=== PATIENT | female | born 1960 | race Caucasian/White ===

== ENCOUNTER 2021-03-02 13:21 | Observation (INO) | payer OTHER, SELFPAY ==
[2021-03-02] VITALS (9 sets, daily range): BP systolic 137–154; BP diastolic 73–110; PULSE 61–73; RESP 10–18; TEMP 36.1–36.8; O2SAT 95–100; BMI 33.0; BMI 31.8; BMI 31.9
--- NOTE | 2021-03-02 13:31 | RAD_ITS ---
STUDY: X-RAY CHEST REASON FOR EXAM: Female, 60 years old. Sudden onset of chest pain TECHNIQUE: Single AP portable view of the chest. COMPARISON: None. FINDINGS: The lungs are clear and expanded. There is no demonstrated pleural abnormality. Normal size heart. Normal mediastinum and julissa. Normal visualized pulmonary arteries. There is atherosclerotic calcification of the aortic arch with tortuosity. Normal visualized thoracic spine. Normal visualized ribs, clavicles, and shoulders. There is no demonstrated abnormality of the visualized soft tissue structures of the upper abdomen. RAD/Chest 1 View (Portable) IMPRESSION: Normal x-ray examination of the chest. Electronically Signed: Franck Yeh MD at 13:56 EDT , Service support ,
--- NOTE | 2021-03-02 13:31 | EKG12_ITS ---
Test Reason : CARDIO WORKUP Blood Pressure : / mmHG Vent. Rate : 060 BPM Atrial Rate : 060 BPM P-R Int : 150 ms QRS Dur : 080 ms QT Int : 392 ms P-R-T Axes : 021 -03 017 degrees QTc Int : 392 ms Normal sinus rhythm Normal ECG Confirmed by TOMAS MEJIA, LEANNA ([id number]), editor & co founder DEANDRA WELLS ([id number]) on 03/04/2021 11:32:21 AM Referred By: MARIO/SHIREEN Confirmed By:LEANNA MARIN MD
[2021-03-02 13:57] LABS: Absolute Lymphocyte Count 2.52 X10^3/uL (0.83-4.51); Basophil# 0.05 X10^3/uL; Basophil% 0.5 % (0-1); Eosinophil# 0.08 X10^3/uL; Eosinophils% 0.9 % (0-5); Hematocrit 41.7 % (37-47); Hemoglobin 13.6 g/dL (12.0-15.0); Lymphocyte # 2.52 X10^3/ul (0.83-4.51); Lymphocyte % 26.8 % (19-41); Mean Corp Hgb Conc 32.6 g/dL (32-36); Mean Corpuscular Hgb 32.8 pg (27.0-32.0); Mean Corpuscular Volume 100.5 fL (81-99); Mean Platelet Vol. 10.3 fl (6.2-12.0); Monocyte# 0.76 X10^3/uL; Monocyte% 8.1 % (0-10); NRBC Flagged by Analyzer 0 % (0-5); Neutrophil # 5.96 X10^3/uL (2.7-7.7); Neutrophil % 63.4 % (47-70); Platelet Count 324 K/mm3 (150-450); RBC Distribution Width CV 13.2 % (11.6-14.6); RBC Distribution Width SD 48.7 fl (35.1-43.9); Red Blood Count 4.15 M/mm3 (4.2-5.4); White Blood Count 9.4 K/mm3 (4.4-11.0)
[2021-03-02 14:03] LABS: Prothrombin Time (Protime)PT. 12.5 SECONDS (11.7-14.9)
[2021-03-02 14:11] LABS: Anion Gap 3 (5-15); BUN 8 mg/dL (7-18); BUN/Creat Ratio 10.4 RATIO (10-20); Calcium,Total 9.6 mg/dL (8.5-10.1); Chloride 104 mmol/L (98-107); Creatinine, Serum 0.77 mg/dL (0.55-1.02); EST Glomerular Filtration Rate 81 mL/min (>60); Est Glom Filt Rate - Afr Amer 98 mL/min (>60); Glucose 127 mg/dL (74-106); Potassium 3.8 mmol/L (3.5-5.1); Sodium Level 136 mmol/L (136-145)
--- NOTE | 2021-03-02 14:18 | ED.DCSUM_ITS ---
History of Present Illness Chief Complaint: General Illness Narrative: 60-year-old female with past medical history of hypertension presents with concern for chest pain and shortness of breath. States is been present over the past 1 week. States that she was seen in the hospital in [place] twice over the weekend. Advised on admission both times. Patient then followed up with Dr. Schmid today who is concerned with her symptoms and feels she needs heart catheterization. States that last night she was having a severe burning in her chest. Was seen by physician real estate executive assistant yesterday who gave her Pepcid which did not resolve her pain. States that she does have a worsening shortness of breath but denies any cough, fever, chills. States she is also very fatigued. Patient is a current smoker. Past Medical History - Allergies and Home Meds Allergies/Adverse Reactions: Allergies Penicillins [PCN] Allergy (Verified 03/02/21 13:22) Rash codeine Adverse Reaction (Verified 03/02/21 13:22) Upset Stomach Prior records reviewed: Yes Past Medical History: - - Hypertension Surgical History: noncontributory Lives: Spouse/ Significant Other Smoking Status: Current every day smoker Alcohol: None Drugs: None - Family History Maternal Family History: Reports: Diabetes Paternal Family History: Reports: Diabetes, - - Cancer Review of Systems General: Reports: Malaise. Denies: Chills, Fever, Sweats Eyes: Denies: Visual changes - bilaterally, Diplopia ENT: Denies: Rhinorrhea, Sore throat Cardiovascular: Reports: Chest pain. Denies: Palpitations Respiratory: Reports: Dyspnea. Denies: Cough, Dyspnea on exertion Gastrointestinal: Denies: Abdominal pain, Nausea, Vomiting, Diarrhea, Melena, Hematochezia Genitourinary: Denies: Dysuria, Hematuria, Frequency Musculoskeletal: Denies: Back pain, Extremity Pain Skin: Denies: Rash, Wounds Neurological: Denies: Headache, Weakness, Numbness Physical Exam Vital Signs/Narrative: Vital Signs Temp Pulse Resp BP Pulse Ox 03/02/21 13:43 98 03/02/21 13:26 67 15 154/110 H 98 03/02/21 13:22 97.6 F L 66 15 154/110 H 100 Inital Vital Signs reviewed: Yes General: Well nourished, Well developed, No Acute Distress Head: Normocephalic, Atraumatic Eyes: Perrl, EOMI ENT: Moist mucous membranes, No rhinorrhea Neck: Supple, Nontender Cardiovascular: Regular rate, Regular rhythm, No murmurs Respiratory: No distress, CTA bilaterally, Chest nontender Abdomen: Soft, Nontender, Nondistended, Normal bowel sounds Back: Nontender, Normal Inspection Extremities: Nontender, No edema Skin: Normal color, No rash Neurological: Alert, Oriented x3, Cranial nerves II-XII grossly intact, Normal Strength, Normal Sensation Psychological: Normal affect, Normal Mood Diagnostic/Tx/Re-eval Chest X-Ray - ED: 1 View, Read by ED Physician, Read by Radiologist, Normal Clinical Impression(s) from Imaging Studies Chest X-Ray 03/02/21 13:31 IMPRESSION: Normal x-ray examination of the chest. Electronically Signed: Franck Yeh MD at 13:56 EDT , Service support , Laboratory Data 03/02/21 03/02/21 03/02/21 13:42 13:42 13:42 WBC 9.4 RBC 4.15 L Hgb 13.6 Hct 41.7 MCV 100.5 H MCH 32.8 H MCHC 32.6 RDW Std Deviation 48.7 H RDW Coeff of Rashard 13.2 Plt Count 324 MPV 10.3 Immature Gran % (Auto) 0.300 Neut % (Auto) 63.4 Lymph % (Auto) 26.8 [place] % (Auto) 8.1 Eos % (Auto) 0.9 Baso % (Auto) 0.5 Absolute Neuts (auto) 6.0 Absolute Lymphs (auto) 2.52 Nucleated RBC % 0 PT 12.5 INR 1.0 Sodium 136 Potassium 3.8 Chloride 104 Carbon Dioxide 29.0 Anion Gap 3 L BUN 8 Creatinine 0.77 Estim Creat Clear Calc 57.90 Est GFR (MDRD) Af Amer 98 Est GFR (MDRD) Non-Af 81 BUN/Creatinine Ratio 10.4 Glucose 127 H Calcium 9.6 Troponin I 0.059 H - Rhythm Strip Rhythm Strip: Sinus Rhythm Rate: 60 Ectopy: None - EKG Initial EKG Interpretation: Sinus Rhythm - Sinus rhythm at 60 bpm. AR interval 150 ms. QTc 392 ms. No evidence of ST elevation or depression at this time. - Medical Decision Making Appears well and nontoxic. EKG nonischemic. Indeterminate troponin. Patient given aspirin. Chest x-ray interpreted by myself shows no evidence of infiltrate or cardiomegaly. Patient will be admitted for further treatment and evaluation. Stable at time of admission. Impression: 1. Chest pain 2. Indeterminate troponin ED Disposition - Plan for ED Patient: Disposition: Acute Care Hospital [facility]
[2021-03-02] MEDS: Aspirin 81 MG TAB.CHEW 324 MG PO (14:47)
--- NOTE | 2021-03-02 15:01 | PCM.HP.STD ---
<Mari Winchester EMERGENCY SERVICE WORKER - Last Filed: 03/02/21 15:37> Problem List (1) Chest pain Status: Acute (2) HTN (hypertension) Status: Chronic (3) GERD (gastroesophageal reflux disease) Status: Chronic History of Present Illness Date of Admission: 03/02/21 Chief Complaint: Chest pain. The patient is a 60 year old F who presents to the Emergency Room due to chest pain. Patient was seen at [facility] twice over the weekend and was recommended to be admitted however patient declined admission. Patient states over the weekend she had intermittent chest burning/pressure with associated nausea, diaphoresis and shortness of breath. She states her symptoms somewhat improved. Today, she had recurrence of chest burning symptoms and spoke with [facility] physician air traffic control manager who referred her to the emergency department for further evaluation. She has a past medical history of hypertension, tobacco dependence, GERD. She denies other cardiac history. Past Medical History Past Medical History (Chronic Problems): Chronic Problems HTN (hypertension) (Chronic) GERD (gastroesophageal reflux disease) (Chronic) Allergies Penicillins [PCN] Allergy (Verified 03/02/21 13:22) Rash codeine Adverse Reaction (Verified 03/02/21 13:22) Upset Stomach Home Medications: Ambulatory Orders Medication Instructions Recorded Aspirin E.C. [Ecotrin] 81 mg PO DAILY@199903/02/21 Atenolol 50 mg PO BID 03/02/21 Cannabidiol (Cbd) [Epidiolex] 100 mg PO BID 03/02/21 Cider Vinegar [Apple Cider Vinegar] 1,200 mg PO DAILY 03/02/21 Dandelion 3 tablet PO DAILY 03/02/21 Famotidine 40 mg PO DAILY 03/02/21 Garlic 3 tablet PO DAILY 03/02/21 Lisinopril [Zestril] 10 mg PO DAILY@209903/02/21 Multivitamin with Minerals 1 tablet PO DAILY 03/02/21 [Multiple Vitamin] Nitroglycerin (INPATIENT USE) 0.4 mg SL Q5M PRN 03/02/21 [Nitrostat] [place]-3 Fatty Acids/Fish Oil [Fish 3,000 mg PO DAILY 03/02/21 Oil 1,000 mg Capsule] Zinc Sulfate (50mg elemental) 2 tablet PO DAILY 03/02/21 [Zinc Sulfate] Surgical History: appendectomy Psychiatric History: No pertinent psych hx MANAGING DIRECTOR ATLAS History: No pertinent MANAGING DIRECTOR ATLAS history Lives: Spouse/ Significant Other Smoking Status: Current every day smoker Tobacco Use: Cigarettes Alcohol: None Drugs: None - *Family History Maternal History Items: Diabetes Paternal History Items: Diabetes, - - Cancer Review of Systems Constitutional: Denies: Chills, Fever, Weight Change HEENT: Denies: Head Aches, Sinus Congestion, Sinus Drainage Cardiovascular: Reports: Chest Pain. Denies: Edema, Light Headedness, Syncope Respiratory: Reports: Shortness of breath upon exertion. Denies: Cough, Shortness of breath at rest, Sputum production Gastrointestinal: Denies: Abdominal Pain, Nausea, Vomiting Genitourinary: Denies: Dysuria Musculoskeletal: Denies: Joint Pain, Joint Tenderness Skin: Denies: Rash, Wounds Neurological: Denies: Numbness, Tingling, Focal weakness Psychiatric: Denies: Anxiety, Depression, Homicidal Ideations, Suicidal Ideations Hematologic/ Lymphatic: Denies: Easy Bruising, Easy Bleeding VTE Information - Inpt Only VTE Present on Admission: No VTE Mechan Device Prophylaxis: None VTE Pharm Prophylaxis ordered?: Yes Patient Problems: Active and Suspected Problems Chest pain (Acute) - Physical Exam Vitals/I&O's: Vital Signs Temp Pulse Resp BP Pulse Ox 97.6 F L 67 15 154/110 H 98 03/02/21 13:22 03/02/21 13:26 03/02/21 13:26 03/02/21 13:26 03/02/21 13:43 Oxygen Delivery Method Room Air Weight: 174 lb 13.225 oz Body Mass Index (BMI) 33.0 General: Alert, Oriented x3, Cooperative HEENT: Atraumatic, PERRLA, EOMI, Normocephalic Neck: Supple, No JVD, Negative Carotid Bruits Lungs: Clear to auscultation, Normal air movement Cardiovascular: Regular rate, No murmurs Abdomen: Bowel Sounds Present, Soft, Non Tender Extremities: No clubbing, No cyanosis, No edema, Capillary Refill Less than 3 Seconds Skin: No rashes, No breakdown Musculoskeletal: No Tenderness to Palpation of Joints or Extremities Neurological: Cranial nerves II-XII grossly intact, Neuro grossly intact Psych/Mental Status: Normal Affect, Appropriate Laboratory Results 03/02/21 13:42: WBC 9.4, RBC 4.15 L, Hgb 13.6, Hct 41.7, MCV 100.5 H, MCH 32.8 H, MCHC 32.6, RDW Std Deviation 48.7 H, RDW Coeff of Rashard 13.2, Plt Count 324, MPV 10.3, Immature Gran % (Auto) 0.300, Neut % (Auto) 63.4, Lymph % (Auto) 26.8, [place] % (Auto) 8.1, Eos % (Auto) 0.9, Baso % (Auto) 0.5, Absolute Neuts (auto) 6.0, Absolute Lymphs (auto) 2.52, Nucleated RBC % 0 03/02/21 13:42: PT 12.5, INR 1.0 03/02/21 13:42: Sodium 136, Potassium 3.8, Chloride 104, Carbon Dioxide 29.0, Anion Gap 3 L, BUN 8, Creatinine 0.77, Estim Creat Clear Calc 57.90, Est GFR (MDRD) Af Amer 98, Est GFR (MDRD) Non-Af 81, BUN/Creatinine Ratio 10.4, Glucose 127 H, Calcium 9.6, Troponin I 0.059 H Assessment/Plan All Active Problems Chest pain (Acute) 1. Chest pain, indeterminate troponin-EKG without acute changes. Trend enzymes. If troponin trends upward, cardiology will see patient and undergo heart cath. If enzymes remain indeterminant or trend downward, plan for stress test in a.m. Aspirin, statin. Fasting lipid panel in a.m. 2. Hypertension-continue atenolol, lisinopril. 3. Tobacco dependence-encouraged cessation. DVT prophylaxis-Lovenox subcu This patient was seen by KARRI Arce under the supervision of Dr. Pedroza. <Chanelle Pedroza E - Last Filed: 03/02/21 15:50> History of Present Illness The patient is a 60 year old F [] Past Medical History Allergies Penicillins [PCN] Allergy (Verified 03/02/21 13:22) Rash codeine Adverse Reaction (Verified 03/02/21 13:22) Upset Stomach - Physical Exam Vitals/I&O's: Vital Signs Temp Pulse Resp BP Pulse Ox 97 F L 61 10 L 137/79 H 100 03/02/21 15:30 03/02/21 15:30 03/02/21 15:30 03/02/21 15:30 03/02/21 15:30 Oxygen Delivery Method Room Air Weight: 174 lb 13.225 oz Body Mass Index (BMI) 33.0 Laboratory Results 03/02/21 13:42: WBC 9.4, RBC 4.15 L, Hgb 13.6, Hct 41.7, MCV 100.5 H, MCH 32.8 H, MCHC 32.6, RDW Std Deviation 48.7 H, RDW Coeff of Rashard 13.2, Plt Count 324, MPV 10.3, Immature Gran % (Auto) 0.300, Neut % (Auto) 63.4, Lymph % (Auto) 26.8, [place] % (Auto) 8.1, Eos % (Auto) 0.9, Baso % (Auto) 0.5, Absolute Neuts (auto) 6.0, Absolute Lymphs (auto) 2.52, Nucleated RBC % 0 03/02/21 13:42: PT 12.5, INR 1.0 03/02/21 13:42: Sodium 136, Potassium 3.8, Chloride 104, Carbon Dioxide 29.0, Anion Gap 3 L, BUN 8, Creatinine 0.77, Estim Creat Clear Calc 57.90, Est GFR (MDRD) Af Amer 98, Est GFR (MDRD) Non-Af 81, BUN/Creatinine Ratio 10.4, Glucose 127 H, Calcium 9.6, Troponin I 0.059 H Assessment/Plan Hospitalist note: I am seeing this patient in conjunction with Mari Winchester. I independently seen and examined the patient. History and physical, laboratory data and imaging studies reviewed and I concur with above admission and treatment plan. Patient presented to the emergency room because of chest pain. It started over the weekend, went to a different facility and she was recommended to admitted to the hospital but she declined. The chest pain has been intermittent over the weekend, described as pressure-like pain, 4-5 out of 10 in severity, sometimes burning, associated with mild shortness of breath, diaphoresis and nausea. She was started on Pepcid over the last couple days for possible GERD but she continued to have this burning sensation in her chest. In the emergency department, her vital signs were stable. Her routine blood work was unremarkable. Her initial EKG revealed normal sinus rhythm without evidence of acute ischemic changes. First troponin was 0.059. Chest x-ray showed no acute findings. She is being admitted for chest pain for evaluation. - Physical Exam General: Alert, Oriented x3, Cooperative, No apparent distress. HEENT: Atraumatic, PERRLA, EOMI. Neck: Supple, No JVD, Negative Carotid Bruits, Trachea Midline, Thyroid Normal. Lungs: Clear to auscultation, Normal air movement, No rhonchi, No wheeze, No rales. Cardiovascular: Regular rate, Regular Rhythm, Normal S1, Normal S2, PMI Normal. Abdomen: Bowel Sounds Present, Soft, Non Tender, Non-Distended, No Hepato-splenomegaly. Extremities: No clubbing, No cyanosis, No edema Skin: No rashes, No breakdown Neurological: Cranial nerves are intact, neuro grossly intact Vital Signs are stable. Assessment and plan: #1 chest pain/abnormal cardiac enzymes: EKG without acute hemic changes. Currently, chest pain improved. Chest x-ray showed no acute findings. Plan: Admit to PCU for observation, cardiac monitoring, serial cardiac enzymes, sublingual nitro as needed for pain, Tylenol as needed, IV fluids, nuclear stress test in the morning cardiac enzymes are negative. If her cardiac enzymes are to go up more, we will consult cardiology for possible stated cardiac catheterization. #2 other chronic medical problems: Stable, continue current medications as above. This note was generated with [employer] dictation software. It may contain incorrect words, spelling, and punctuation that were not noted in checking the note before signing. OBSV E&M: [id number] Initial observation care L3
[2021-03-02] MEDS: 0.9% Normal Saline 1,000 ML 75 ML IV (16:19)
--- NOTE | 2021-03-02 16:20 | EKG12_ITS ---
Test Reason : CP Blood Pressure : / mmHG Vent. Rate : 061 BPM Atrial Rate : 061 BPM P-R Int : 158 ms QRS Dur : 082 ms QT Int : 402 ms P-R-T Axes : 017 005 018 degrees QTc Int : 404 ms Normal sinus rhythm Normal ECG Confirmed by TOMAS MEJIA, LEANNA ([id number]), assignment desk editor CARMEN FARLEY ([id number]) on 03/07/2021 8:56:12 AM Referred By: Zoraida BONE Confirmed By:LEANNA MARIN MD
[2021-03-02] MEDS: Acetaminophen 325 MG Tablet 650 MG PO (17:10)
[2021-03-02] MEDS: Aspirin E.C. 81 MG Tablet PO (21:29)
[2021-03-02] MEDS: Lisinopril 10 MG Tablet PO (21:31)
[2021-03-02] MEDS: Atenolol 50 MG Tablet PO (21:31)
[2021-03-02] MEDS: Zolpidem Tartrate 5 MG Tablet PO (21:32)
[2021-03-03] VITALS (10 sets, daily range): BP systolic 123–137; BP diastolic 55–72; PULSE 61–69; RESP 16–18; TEMP 36.5–36.9; O2SAT 95–100
[2021-03-03 05:34] LABS: Absolute Lymphocyte Count 2.83 X10^3/uL (0.83-4.51); Absolute Neutrophil Count 3.4 X10^3/uL (2.0-7.7); Basophil# 0.06 X10^3/uL; Basophil% 0.8 % (0-1); Eosinophil# 0.19 X10^3/uL; Eosinophils% 2.6 % (0-5); Hematocrit 36.9 % (37-47); Lymphocyte # 2.83 X10^3/ul (0.83-4.51); Lymphocyte % 39.3 % (19-41); Mean Corp Hgb Conc 32.5 g/dL (32-36); Mean Corpuscular Hgb 32.7 pg (27.0-32.0); Mean Corpuscular Volume 100.5 fL (81-99); Mean Platelet Vol. 10.4 fl (6.2-12.0); Monocyte# 0.69 X10^3/uL; Monocyte% 9.6 % (0-10); NRBC Flagged by Analyzer 0 % (0-5); Neutrophil # 3.41 X10^3/uL (2.7-7.7); Neutrophil % 47.3 % (47-70); Platelet Count 278 K/mm3 (150-450); RBC Distribution Width CV 13.1 % (11.6-14.6); RBC Distribution Width SD 48.7 fl (35.1-43.9); Red Blood Count 3.67 M/mm3 (4.2-5.4); White Blood Count 7.2 K/mm3 (4.4-11.0)
[2021-03-03 06:00] LABS: Anion Gap 4 (5-15); BUN 10 mg/dL (7-18); BUN/Creat Ratio 15.6 RATIO (10-20); Calcium,Total 8.9 mg/dL (8.5-10.1); Chloride 108 mmol/L (98-107); Cholesterol 232 mg/dL (200); Creatinine, Serum 0.64 mg/dL (0.55-1.02); EST Glomerular Filtration Rate 100 mL/min (>60); Est Glom Filt Rate - Afr Amer 121 mL/min (>60); Estimated Creatinine Clearance 69.66 ml/min; Glucose 99 mg/dL (74-106); High Density Lipoprotein 44 mg/dL; Potassium 3.9 mmol/L (3.5-5.1); Sodium Level 140 mmol/L (136-145); Triglycerides 142 mg/dL; Very Low Density Lipoprotein 28 mg/dL (5-40)
--- NOTE | 2021-03-03 08:54 | PCM.CONS.C ---
Reason for Consult Date of Consultation: 03/03/21 Reason for Consultation: Chest burning History of Present Illness: The patient is a 60 year old F who presented to the emergency room due to chest burning. She was seen in outside hospital twice over the weekend with chest discomfort she was recommended to be admitted but she declined admission. She had more intermittent chest discomfort over the weekend with associated nausea diaphoresis and shortness of breath. She continues to use tobacco products. There was some radiation to her arm and shoulder. She also has a history of hypertension and gastroesophageal reflux disease. She presented to the emergency room here was evaluated her EKG did not demonstrate significant abnormalities but this morning her troponin enzymes were mildly abnormal. She was originally scheduled for a stress test but due to the abnormal troponin this was canceled in favor of the cardiac catheterization. [] Past Medical History Allergies/Adverse Reactions: Allergies Penicillins [PCN] Allergy (Verified 03/02/21 13:22) Rash codeine Adverse Reaction (Verified 03/02/21 13:22) Upset Stomach Home Medications: Ambulatory Orders Medication Instructions Recorded Aspirin E.C. [Ecotrin] 81 mg PO DAILY@199903/02/21 Atenolol 50 mg PO BID 03/02/21 Cannabidiol (Cbd) [Epidiolex] 100 mg PO BID 03/02/21 Cider Vinegar [Apple Cider Vinegar] 1,200 mg PO DAILY 03/02/21 Dandelion 3 tablet PO DAILY 03/02/21 Famotidine 40 mg PO DAILY 03/02/21 Garlic 3 tablet PO DAILY 03/02/21 Lisinopril [Zestril] 10 mg PO DAILY@209903/02/21 Multivitamin with Minerals 1 tablet PO DAILY 03/02/21 [Multiple Vitamin] Nitroglycerin (INPATIENT USE) 0.4 mg SL Q5M PRN 03/02/21 [Nitrostat] [place]-3 Fatty Acids/Fish Oil [Fish 3,000 mg PO DAILY 03/02/21 Oil 1,000 mg Capsule] Zinc Sulfate (50mg elemental) 2 tablet PO DAILY 03/02/21 [Zinc Sulfate] Past Medical History (Chronic Problems): Chronic Problems HTN (hypertension) (Chronic) GERD (gastroesophageal reflux disease) (Chronic) Surgical History: appendectomy Psychiatric History: No pertinent psych hx DIRECTOR OF EMAIL MARKETING History: No pertinent DIRECTOR OF EMAIL MARKETING history - *Family History Maternal History Items: Diabetes Paternal History Items: Diabetes, - - Cancer Lives: Spouse/ Significant Other Smoking Status: Current every day smoker Tobacco Use: Cigarettes Alcohol: None Drugs: None Review of Systems - Review of Systems General: Denies: Fever, Night Sweats, Fatigue HEENT: Denies: Vision Change Cardiovascular: Reports: Chest Discomfort, Chest Discomfort at Rest, Chest Discomfort with Exertion, Chest Pressure. Denies: Shortness of Breath, Orthopnea, PND, Peripheral Edema, Palpitations, Lightheadedness, Dizziness, Near Syncope, Syncope Respiratory: Denies: Cough, Sputum Production, Hemoptysis Gastrointestinal: Reports: Heart Burn. Denies: Hematemesis, Hematochezia, Melena Genitourinary: Denies: Dysuria, Hematuria Skin: Denies: Rash Psychiatric: Denies: Anxiety Endocrine: Denies: Heat Intolerance Subjectve: Pleasant lady in no distress at this time Objective: Vital Signs Temp Pulse Resp BP Pulse Ox 97.8 F 62 16 137/64 H 97 03/03/21 06:31 03/03/21 07:00 03/03/21 06:31 03/03/21 06:31 03/03/21 07:23 Oxygen Delivery Method Room Air Weight: 168 lb 11.2 oz Body Mass Index (BMI) 31.8 Intake and Output for Last 24 Hours 03/01/21 03/02/21 03/03/21 23:59 23:59 23:59 Intake Total 480 / 480 1000 / 1000 Balance 480 / 480 1000 / 1000 General: Awake, Alert, Oriented x 3 HEENT: PERRL, EOMI, Sclera Non Icteric Neck: Supple, Good ROM, No Lymph Node Enlargement Lungs: Clear to auscultation Cardiovascular: Regular Rhythm, Normal S1, Normal S2, No Murmurs, No Rubs, No Gallops Vascular: No Carotid Bruits, Normal Femoral Pulses, Normal Radial Pulses, Normal Dorsalis Pedal Pulse, Normal Posterior Tibial Pulses Abdomen: Bowel Sounds Present, Soft, Non Tender, No HSM, No Organomegaly Extremities: No Cyanosis, No Clubbing, No edema Musculoskeletal: No Erythema Skin: No Rashes Neurological: No Focal Motor or Sensory Deficit 03/02/21 13:42: WBC 9.4, RBC 4.15 L, Hgb 13.6, Hct 41.7, MCV 100.5 H, MCH 32.8 H, MCHC 32.6, Plt Count 324, MPV 10.3, Immature Gran % (Auto) 0.300, Neut % (Auto) 63.4, Lymph % (Auto) 26.8, [place] % (Auto) 8.1, Eos % (Auto) 0.9, Baso % (Auto) 0.5, Absolute Neuts (auto) 6.0, Nucleated RBC % 0 03/02/21 13:42: PT 12.5, INR 1.0 03/02/21 13:42: Sodium 136, Potassium 3.8, Chloride 104, Carbon Dioxide 29.0, Anion Gap 3 L, BUN 8, Creatinine 0.77, Est GFR (MDRD) Af Amer 98, Est GFR (MDRD) Non-Af 81, BUN/Creatinine Ratio 10.4, Glucose 127 H, Calcium 9.6, Troponin I 0.059 H 03/02/21 17:03: Troponin I 0.056 H 03/02/21 19:35: Troponin I 0.058 H 03/03/21 05:10: WBC 7.2, RBC 3.67 L, Hgb 12.0, Hct 36.9 L, MCV 100.5 H, MCH 32.7 H, MCHC 32.5, Plt Count 278, MPV 10.4, Immature Gran % (Auto) 0.400, Neut % (Auto) 47.3, Lymph % (Auto) 39.3, [place] % (Auto) 9.6, Eos % (Auto) 2.6, Baso % (Auto) 0.8, Absolute Neuts (auto) 3.4, Nucleated RBC % 0 03/03/21 05:10: Sodium 140, Potassium 3.9, Chloride 108 H, Carbon Dioxide 28.0, Anion Gap 4 L, BUN 10, Creatinine 0.64, Est GFR (MDRD) Af Amer 121, Est GFR (MDRD) Non-Af 100, BUN/Creatinine Ratio 15.6, Glucose 99, Calcium 8.9, Triglycerides 142, Cholesterol 232 H, LDL Cholesterol 160 H, VLDL Cholesterol 28, HDL Cholesterol 44 Rhythm: EKG: Normal sinus rhythm with no acute changes ECHO: Stress Test: Cardiac Cath: PCI: CT Surgery: Holter monitor: EPS: PPM: CXR: Chest CT Scan: Assessment/Plan 1. Chest discomfort Patient presents with chest discomfort and cardiac risk factors suggestive of unstable angina. I would recommend at this time that we forego stress testing and proceed to a cardiac catheterization due to her risk factors. The risk benefits and alternatives of been explained to her she understands and agrees to proceed. Depending on the findings further recommendations will be made. Addendum: At 9:35 AM Cardiac catheterization demonstrates the following: Normal left main coronary artery. Left anterior descending artery with no high-grade stenosis. Left circumflex artery with mild disease. Very small dominant right coronary artery with high-grade mid 90% stenosis. Possible localized dissection of the right coronary cusp. Echocardiogram performed demonstrated no evidence of pericardial effusion. Blood pressures are noted to be stable. Would obtain stat CAT scan to exclude any localized dissection. At the conclusion of the procedure the patient is pain-free vital signs are stable.
--- NOTE | 2021-03-03 08:59 | CASEMGMT ---
Tertiary facilities in-network with patient's insurance: [facility], [facility], [facility], and [facility]
--- NOTE | 2021-03-03 09:32 | CT_ITS ---
STUDY: CT CHEST WITH T WITHOUT CONTRAST REASON FOR EXAM: Female, 60 years old. R/O DISSECTION -- CT WITHOUT FIRST THEN WITH CONTRAST RADIATION DOSAGE (If Supplied By Facility): CTDIvol = ( 12.44 ) mGy, DLP = ( 967.49 ) mGycm TECHNIQUE: Transaxial imaging was performed pre-and post contrast administration of IV 100mL Isovue-370. Multiplanar coronal and sagittal images were reformatted. Individualized dose optimization techniques were used for this CT. COMPARISON: None. FINDINGS: Small benign-appearing bilateral axillary lymph nodes. Mild degree of increased markings in the lung apices suggestive of scarring as well as at the lung bases. There is no demonstrated pleural abnormality. There are calcifications of the coronary arteries. Focal contrast collection is seen in the distal portion of the right coronary artery in keeping with the patient''s history of possible subintimal injection of contrast. No evidence of pericardial effusion. Normal mediastinum. Normal hilar regions. Normal enhanced and unenhanced pulmonary arteries. There is atherosclerotic calcification of the aortic arch with tortuosity and elongation of the aortic arch and descending thoracic aorta. There are multi-level degenerative changes of the thoracic spine. There is no demonstrated abnormality of the visualized upper abdomen. CT/Chest W/WO Contrast IMPRESSION: Coronary calcification. Focal collection of contrast in the right coronary artery suggestive of a subintimal injection. Electronically Signed: Franck Yeh MD at 10:02 EDT , Service support ,
--- NOTE | 2021-03-03 09:48 | ECHOL_ITS ---
Reason For Study: R/O Pericardial effusion Procedure This was a limited 2D transthoracic echocardiogram. The study was technically difficult. Performed protable in the clinical laboratory science professor. Left Ventricle Normal left ventricle. Left ventricular systolic function is normal. The estimated ejection fraction is 60 %. No regional wall motion abnormalities noted. Right Ventricle Normal RV size. Normal systolic function. Mitral Valve There is mild to moderate mitral annular calcification. Aortic Valve Trisinus/trileaflet aortic valve. Great Vessels Calcified aortic root. Pericardium/Pleural No pericardial effusion. MMode/2D Measurements & Calculations LVIDd: 4.1 cm IVSd: 1.1 cm Ao root diam: 2.5 cm LVIDs: 2.3 cm LVPWd: 1.0 cm FS: 45.5 % ECHO/Echo, Limited Study Interpretation Summary Normal left ventricle. Left ventricular systolic function is normal. The estimated ejection fraction is 60 %. There is mild to moderate mitral annular calcification. The study was technically limited. Ordering Physician: Sacha Ruiz Referring Physician: MD Raz Eugenio Performed By: Trina Price, RDMEGHAN
--- NOTE | 2021-03-03 17:33 | PN_ITS ---
Patient Problems: Active and Suspected Problems Chest pain (Acute) Subjective: Patient indicates she is feeling well. Currently having no chest pain. Reports that she will not take statins. Indicates she continues to smoke and will cut back but likely not quit at this time. She tells me Dr. Ruiz told her she would be discharged by 730 tomorrow morning I did indicate to her that is probably not likely but I would get over to discharge her as soon as possible if appropriate. Vitals/I&O's: Vital Signs Temp Pulse Resp BP Pulse Ox 98.5 F 65 18 123/55 H 98 03/03/21 16:32 03/03/21 16:32 03/03/21 16:32 03/03/21 16:32 03/03/21 16:32 Oxygen Delivery Method Room Air Weight: 76.521 kg Body Mass Index (BMI) 31.8 Intake and Output for Last 24 Hours 03/01/21 03/02/21 03/03/21 23:59 23:59 23:59 Intake Total 480 / 480 1000 / 1000 Balance 480 / 480 1000 / 1000 General: Alert, Oriented x3, Cooperative, No apparent distress, Well developed, Well nourished, - - Patient is sitting up in bed is at bedside, she appears slightly anxious HEENT: Atraumatic, Normocephalic Oral: Moist Mucosa, No Gingival or Mucosal Lesions/ Ulcerations Neck: Supple, Trachea Midline, Thyroid Normal Size and Texture Lungs: No rhonchi, No wheeze, No rales, Diminished Cardiovascular: Regular rate, Regular Rhythm, Normal S1, Normal S2, No murmurs, No Ectopic Activity, No rub noted, No Gallop Abdomen: Bowel Sounds Present, Soft, Non Tender, Non-Distended, Obese Extremities: No clubbing, No cyanosis, No edema, Capillary Refill Less than 3 Seconds, Peripheral Pulses Normal Skin: No rashes, No breakdown Neurological: Cranial nerves II-XII grossly intact, Neuro grossly intact Psych/Mental Status: Appropriate, Agitated Laboratory Results 03/02/21 17:03: Troponin I 0.056 H 03/02/21 19:35: Troponin I 0.058 H 03/03/21 05:10: WBC 7.2, RBC 3.67 L, Hgb 12.0, Hct 36.9 L, MCV 100.5 H, MCH 32.7 H, MCHC 32.5, RDW Std Deviation 48.7 H, RDW Coeff of [place]ard 13.1, Plt Count 278, MPV 10.4, Immature Gran % (Auto) 0.400, Neut % (Auto) 47.3, Lymph % (Auto) 39.3, [place] % (Auto) 9.6, Eos % (Auto) 2.6, Baso % (Auto) 0.8, Absolute Neuts (auto) 3.4, Absolute Lymphs (auto) 2.83, Nucleated RBC % 0 03/03/21 05:10: Sodium 140, Potassium 3.9, Chloride 108 H, Carbon Dioxide 28.0, Anion Gap 4 L, BUN 10, Creatinine 0.64, Estim Creat Clear Calc 69.66, Est GFR (MDRD) Af Amer 121, Est GFR (MDRD) Non-Af 100, BUN/Creatinine Ratio 15.6, Glucose 99, Calcium 8.9, Triglycerides 142, Cholesterol 232 H, LDL Cholesterol 160 H, VLDL Cholesterol 28, HDL Cholesterol 44 Current Medications Acetaminophen (Acetaminophen 325 Mg Tablet) 650 mg PO Q6H PRN PRN PRN Reason: Pain Score 1-10/Temp > 100.7 F Last Admin: 03/02/21 17:10 Dose: 650 mg Documented by: Aspirin (Aspirin E.C. 81 Mg Tablet) 81 mg PO DAILY@1999 [facility] Last Admin: 03/02/21 21:29 Dose: 81 mg Documented by: Atenolol (Atenolol 50 Mg Tablet) 50 mg PO BID [facility] Last Admin: 03/03/21 12:21 Dose: Not Given Documented by: Atorvastatin Calcium (Atorvastatin Calcium 40 Mg Tablet) 40 mg PO QHS [facility] Last Admin: 03/02/21 21:32 Dose: Not Given Documented by: Enoxaparin Sodium (Enoxaparin 40 Mg/0.4 Ml Syringe) 40 mg SC DAILY [facility] Last Admin: 03/03/21 12:20 Dose: Not Given Documented by: Famotidine (Famotidine 20 Mg Tablet) 40 mg PO DAILY [facility] Last Admin: 03/03/21 12:19 Dose: Not Given Documented by: Hydralazine HCl (Hydralazine 20 Mg/Ml Vial) 10 mg IV Q6H PRN PRN PRN Reason: for SBP>160 Sodium Chloride () 250 mls @ 15 mls/hr IV .[id number] PRN PRN Reason: Saline Flush Sodium Chloride () 250 mls @ 15 mls/hr IV .[id number] PRN PRN Reason: Additional IVPB Infusion Sodium Chloride () 1,000 mls @ 15 mls/hr IV .Q48H [facility] Last Admin: 03/03/21 12:21 Dose: Not Given Documented by: Iopamidol (Contrast Allergy Safety Check) 0 ml IV X1 [facility] Last Admin: 03/03/21 12:22 Dose: Not Given Documented by: Lisinopril (Lisinopril 10 Mg Tablet) 10 mg PO DAILY@2100 [facility] Last Admin: 03/02/21 21:31 Dose: 10 mg Documented by: Nitroglycerin (Nitroglycerin (Inpatient Use) 0.4 Mg Tab.Subl) 0.4 mg SL Q5M PRN PRN Reason: CARDIAC/CHEST PAIN Senna/Docusate Sodium (Senna/Docusate Sodium 1 Tablet) 2 tablet PO BID PRN PRN PRN Reason: Constipation Sodium Chloride (0.9% Saline Lock 10 Ml Syringe) 10 - 40 ml IV UD PRN PRN Reason: SALINE FLUSH Zolpidem Tartrate (Zolpidem Tartrate 5 Mg Tablet) 5 mg PO QHS PRN PRN PRN Reason: INSOMNIA Last Admin: 03/02/21 21:32 Dose: 5 mg Documented by: STROKE Vital Signs/Narrative: Vital Signs Temp Pulse Resp BP Pulse Ox 03/03/21 16:32 98.5 F 65 18 123/55 H 98 03/03/21 15:00 66 Medical Necessity - Tobacco Use Smoking Status: Current every day smoker Tobacco Use: Cigarettes Assessment/Plan All Active Problems Chest pain (Acute) Chest pain/CAD -Cardiac catheterization done this morning and showed a normal left main, LAD with no high-grade stenosis, left circumflex with mild disease, a very small dominant RCA with high-grade stenosis at 90%, possible localized dissection of the right coronary cusp -Echocardiogram showed no pericardial effusion] -CT of the chest showed coronary calcification with focal collection of contrast in the right coronary that was suggestive of subintimal injection -Recommendations from cardiology are for medical management at this time -Continue aspirin -Continue atenolol -I have recommended to the patient that we continue her atorvastatin given her significant hyperlipidemia but patient states she will refuse to to take a statin and with that we are wasting her time giving her this medication -She states she will take fish oil at home -We discussed dietary changes that may be helpful in reducing her cholesterol as well -Continue lisinopril 10 mg -Await further cardiology recommendations -Possible discharge tomorrow Hyperlipidemia -Patient refuses to take cholesterol medication despite strong recommendation based on her cholesterol levels to start this medication -Discussed dietary changes that may be helpful in cholesterol reduction -We will continue to take home fish oil -LDL is 260 and total cholesterol is 230 Hypertension -Continue lisinopril -Continue atenolol GERD -Patient is on no medical therapy for this -Continue supplements and dietary changes Tobacco abuse -Patient has been a longtime smoker -States she has cut back recently -We discussed smoking cessation and she believes this is going to be very difficult for her but intends to cut back - is present and supportive and encouraging -Strongly recommended tobacco cessation DVT prophylaxis -Ambulation protocol CODE STATUS -Full code Inpatient E&M: 25445 Subs Hosp L2
[2021-03-03] MEDS: Aspirin E.C. 81 MG Tablet PO (20:15)
[2021-03-03] MEDS: Lisinopril 10 MG Tablet PO (20:15)
[2021-03-03] MEDS: Atenolol 50 MG Tablet PO (20:15)
--- NOTE | 2021-03-03 20:18 | NURSING ---
Pt requesting to have HS meds given early at this time so she can go to sleep.
[2021-03-04 02:50] VITALS: BP 129/72; PULSE 62; RESP 18; TEMP 36.5; O2SAT 96
[2021-03-04 02:59] VITALS: PULSE 60
[2021-03-04 07:00] VITALS: PULSE 65
[2021-03-04 08:03] VITALS: BP 129/67; PULSE 61; RESP 18; TEMP 36.1; O2SAT 96
[2021-03-04] MEDS: Atenolol 50 MG Tablet PO (08:04)
--- NOTE | 2021-03-04 10:05 | CL.D_ITS ---
Patient Name: JACQUELINE SANDERS Study Date: 03/03/2021 Performing: Sacha Ruiz MD Ht: 61 inches 155 cm : 1960 Wt: 170 lbs 77 kg Age: 60 Gender: female BSA: 1.76 PROCEDURE(S) PERFORMED [id number]/COR/LV CLINICAL PROFILE AND INDICATIONS Indications: Suspected CAD Heart Failure: None Stress/Imaging Stress/Image Study Performed: No CAD Presentations: Unstable angina. CONCLUSIONS High-grade right coronary artery lesion noted in the small but dominant vessel. RECOMMENDATIONS Would consider PCI of the right after the patient is stable. The vessel is however rather small. Will evaluate with a CT scan to exclude any dissection or pericardial extension. DESCRIPTION OF PROCEDURE The patient arrived to the procedure lab. The risks and benefits of the procedure as well as a full d escription of our services here and current unavailability of surgical backup were fully explained to the patient and/or their significant other prior to the catheterization. The Timeout was completed, verifying the correct patient and procedure. The patient's procedural site was prepped and draped in the usual fashion. Local anesthetic was given subcutaneously to right radial region with Lidocaine 2% . Using a modified Seldinger technique, arterial access was obtained via the right radial artery, a 6 Fr sheath was inserted. Right Coronary Artery selective angiography was then performed in multiple v iews using a 5 Fr. 4.0 [place] catheter. Left Coronary Artery selective angiography was performed in mu ltiple views using a 5 Fr. 4.0 [place] catheter. Left Ventriculography was performed in ROSS projection using a 5 Fr. [place] catheter. LV to AO pullback pressures were then recorded.The arterial sheath was pulled and a TR Band was applied for hemostasis w/13ml air. The arterial sheath w as pulled and a TR Band was applied for hemostasis CORONARY ANGIOGRAPHY DOMINANCE: Right Dominant LEFT HEART ASSESSMENT Left Ventricular Ejection Fraction: by LV Gram 60 % Normal Left Ventricular systolic function LEFT MAIN: Mild calcification, Mild luminal irregularities LEFT ANTERIOR DESCENDING ARTERY: Mild luminal irregularities CIRCUMFLEX ARTERY: Mild luminal irregularities RIGHT CORONARY ARTERY: MID RCA: 90 % Stenosis AORTIC ROOT: On the last injection of the right coronary artery there appears to be a localized dissection present . No evidence of pericardial effusion noted by quick echocardiographic evaluation COMPLICATIONS No Complications PROCEDURE MEDICATIONS Fentanyl 50 mcg IV Versed 1 mg IV Versed 1 mg IV Versed 1 mg IV Oxygen: 2 L/min via nasal cannula Baby Aspirin (81mg) 1 Tabs PO @ 03/03/2021 08:54:53 Heparin diluted in 23cc Heparinized saline. Patient given 10cc IA of this solution. 03/03/2021 09:04: 58 Verapamil 2.5mg, Ntg 100mcgs, 2000 units of Heparin diluted in 23cc Heparinized saline. Patient give n 10cc IA of this solution. 03/03/2021 09:04:58 IV Bolus: .9 NaCl 500 ml total 03/03/2021 12:03:43 IV Fluids: .9 NaCl IV started @ 75 ml/hr 03/03/2021 10:00:23 SUMMARY OF HEMODYNAMIC DATA Time AIR REST ECG 08:47:00 AO 130/67 (93) SA 09:07:06 LV 131/9, 25 09:14:43 LV 119/10, 26 09:14:49 LV 134/11, 27 09:15:56 LVp 125/16, 28 09:16:06 AOp 105/60 (79) 09:16:11 AO 132/68 (95) 09:29:20 RM AIR REST 09:36:54 Signed By Sacha Ruiz MD On 03/04/2021 8:47:41 AM Signed By Sacha Ruiz MD On 03/03/2021 9:47:57 AM Sacha Ruiz MD
--- NOTE | 2021-03-04 11:39 | DCINST_ITS ---
- Discharge Diagnoses Current Active Problems: Current Active and Chronic Problems Chest pain (Acute) HTN (hypertension) (Chronic) GERD (gastroesophageal reflux disease) (Chronic) You will use the following diet at home:: Cardiac Your food should be the consistency of: Regular Your liquids should be the consistency of: Regular/Thin Discharge Activity: Return to Normal Activity, - - Do not lift greater than 10 pounds with right arm until 03/05/2021 Return to work on 03/07/2021 Allergies/Adverse Reactions: Allergies Penicillins [PCN] Allergy (Verified 03/02/21 13:22) Rash codeine Adverse Reaction (Verified 03/02/21 13:22) Upset Stomach Medications to take at Discharge Aspirin E.C. [Ecotrin] 81 mg PO DAILY@199903/02/21 Atenolol 50 mg PO BID 03/02/21 Cannabidiol (Cbd) [Epidiolex] 100 mg PO BID 03/02/21 Cider Vinegar [Apple Cider Vinegar] 1,200 mg PO DAILY 03/02/21 Dandelion 3 tablet PO DAILY 03/02/21 Famotidine 40 mg PO DAILY 03/02/21 Garlic 3 tablet PO DAILY 03/02/21 Lisinopril [Zestril] 10 mg PO DAILY@209903/02/21 Multivitamin with Minerals [Multiple Vitamin] 1 tablet PO DAILY 03/02/21 Nitroglycerin (INPATIENT USE) [Nitrostat] 0.4 mg SL Q5M PRN 03/02/21 [place]-3 Fatty Acids/Fish Oil [Fish Oil 1,000 mg Capsule] 3,000 mg PO DAILY 03/02/21 Zinc Sulfate (50mg elemental) [Zinc Sulfate] 2 tablet PO DAILY 03/02/21 Primary Care Physician: Eugenio Crandall MD [Primary Care Provider] - Please follow up with your Primary Care Physician in: 1 to 2 weeks Test Results: Test results from this visit will be discussed in further detail at your follow- up appointment, if applicable. Please Follow Up With: Sacha Ruiz MD When: 2-4 weeks-call for appt
--- NOTE | 2021-03-04 11:40 | PN.CARD_ITS ---
Objective: Vital Signs Temp Pulse Resp BP Pulse Ox 96.9 F L 61 18 129/67 H 96 03/04/21 08:03 03/04/21 08:03 03/04/21 08:03 03/04/21 08:03 03/04/21 08:03 Oxygen Delivery Method Room Air Weight: 168 lb 11.2 oz Body Mass Index (BMI) 31.8 Intake and Output for Last 24 Hours 03/02/21 03/03/21 03/04/21 23:59 23:59 23:59 Intake Total 480 / 480 1840 / 1840 240 / 240 Balance 480 / 480 1840 / 1840 240 / 240 General: Awake, Alert, Oriented x 3 HEENT: Atraumatic Neck: Supple, Good ROM, No Lymph Node Enlargement Lungs: Clear to auscultation Cardiovascular: Regular Rhythm, Normal S1, Normal S2, No Murmurs, No Rubs, No Gallops Abdomen: Bowel Sounds Present, Soft, Non Tender, No HSM, No Organomegaly Rhythm: EKG: ECHO: Stress Test: Cardiac Cath: PCI: CT Surgery: Holter monitor: EPS: PPM: CXR: Chest CT Scan: Medical Necessity - Tobacco Use Smoking Status: Current every day smoker Tobacco Use: Cigarettes Assessment/Plan 60-year-old female seen and evaluated today at bedside along with the nursing staff. at bedside She is very stable clinically she does not have any symptoms of chest pain Her cardiac specialist showed underlying normal sinus rhythm. Cardiac examination essentially normal This patient had a cardiac catheterization by her primary natural gas treating unit operator Dr.Ofori aviles left main, left circumflex and LAD has no significant atherosclerosis Nondominant RCA with 90% mid stenosis and stable small dissection at the ostium of the RCA she remains stable clinically Her LV function is preserved with ejection fraction of around 60% Recommendation and plan; From cardiac standpoint patient is stable recommendation will be to follow-up with the primary natural gas treating unit operator in 2 weeks I discussed the case with the hospitalist Dr. Brown.
--- NOTE | 2021-03-04 11:49 | PCM.DC.SUM ---
Discharge Date and Diagnosis - Problem List Patient Problems: Active and Suspected Problems Chest pain (Acute) Date of Admission: 03/02/21 Date of Discharge: 03/04/21 - Primary Discharge Diagnosis Acute Problems: Active Problems Chest pain (Acute) - Secondary Discharge Diagnosis Chronic Problems: Chronic Problems HTN (hypertension) (Chronic) GERD (gastroesophageal reflux disease) (Chronic) Hospital Course and Treatment Imaging Results: STUDY: X-RAY CHEST REASON FOR EXAM: Female, 60 years old. Sudden onset of chest pain TECHNIQUE: Single AP portable view of the chest. COMPARISON: None. FINDINGS: The lungs are clear and expanded. There is no demonstrated pleural abnormality. Normal size heart. Normal mediastinum and julissa. Normal visualized pulmonary arteries. There is atherosclerotic calcification of the aortic arch with tortuosity. Normal visualized thoracic spine. Normal visualized ribs, clavicles, and shoulders. There is no demonstrated abnormality of the visualized soft tissue structures of the upper abdomen. RAD/Chest 1 View (Portable) IMPRESSION: Normal x-ray examination of the chest. STUDY: CT CHEST WITH T WITHOUT CONTRAST REASON FOR EXAM: Female, 60 years old. R/O DISSECTION -- CT WITHOUT FIRST THEN WITH CONTRAST RADIATION DOSAGE (If Supplied By Facility): CTDIvol = ( 12.44 ) mGy, DLP = ( 967.49 ) mGycm TECHNIQUE: Transaxial imaging was performed pre-and post contrast administration of IV 100mL Isovue-370. Multiplanar coronal and sagittal images were reformatted. Individualized dose optimization techniques were used for this CT. COMPARISON: None. FINDINGS: Small benign-appearing bilateral axillary lymph nodes. Mild degree of increased markings in the lung apices suggestive of scarring as well as at the lung bases. There is no demonstrated pleural abnormality. There are calcifications of the coronary arteries. Focal contrast collection is seen in the distal portion of the right coronary artery in keeping with the patient''s history of possible subintimal injection of contrast. No evidence of pericardial effusion. Normal mediastinum. Normal hilar regions. Normal enhanced and unenhanced pulmonary arteries. There is atherosclerotic calcification of the aortic arch with tortuosity and elongation of the aortic arch and descending thoracic aorta. There are multi-level degenerative changes of the thoracic spine. There is no demonstrated abnormality of the visualized upper abdomen. CT/Chest W/WO Contrast IMPRESSION: Coronary calcification. Focal collection of contrast in the right coronary artery suggestive of a subintimal injection. Patient Name: JACQUELINE SANDERS Study Date: 03/03/2021 Performing: Sacha Ruiz MD Ht: 61 inches 155 cm : 1960 Wt: 170 lbs 77 kg Age: 60 Gender: female BSA: 1.76 PROCEDURE(S) PERFORMED PB31-CRX/COR/LV CLINICAL PROFILE AND INDICATIONS Indications: Suspected CAD Heart Failure: None Stress/Imaging Stress/Image Study Performed: No CAD Presentations: Unstable angina. CONCLUSIONS High-grade right coronary artery lesion noted in the small but dominant vessel. RECOMMENDATIONS Would consider PCI of the right after the patient is stable. The vessel is however rather small. Will evaluate with a CT scan to exclude any dissection or pericardial extension. DESCRIPTION OF PROCEDURE The patient arrived to the procedure lab. The risks and benefits of the procedure as well as a full description of our services here and current unavailability of surgical backup were fully explained to the patient and/or their significant other prior to the catheterization. The Timeout was completed, verifying the correct patient and procedure. The patient's procedural site was prepped and draped in the usual fashion. Local anesthetic was given subcutaneously to right radial region with Lidocaine 2%. Using a modified Seldinger technique, arterial access was obtained via the right radial artery, a 6Fr sheath was inserted. Right Coronary Artery selective angiography was then performed in multiple views using a 5 Fr. 4.0 Murray catheter. Left Coronary Artery selective angiography was performed in multiple views using a 5 Fr. 4.0 Murray catheter. Left Ventriculography was performed in ROSS projection using a 5 Fr. Pigtail catheter. LV to AO pullback pressures were then recorded.The arterial sheath was pulled and a TR Band was applied for hemostasis w/13ml air. The arterial sheath was pulled and a TR Band was applied for hemostasis CORONARY ANGIOGRAPHY DOMINANCE: Right Dominant LEFT HEART ASSESSMENT Left Ventricular Ejection Fraction: by LV Gram 60 % Normal Left Ventricular systolic function LEFT MAIN: Mild calcification, Mild luminal irregularities LEFT ANTERIOR DESCENDING ARTERY: Mild luminal irregularities CIRCUMFLEX ARTERY: Mild luminal irregularities RIGHT CORONARY ARTERY: MID RCA: 90 % Stenosis AORTIC ROOT: On the last injection of the right coronary artery there appears to be a localized dissection present. No evidence of pericardial effusion noted by quick echocardiographic evaluation COMPLICATIONS No Complications PROCEDURE MEDICATIONS Fentanyl 50 mcg IV Versed 1 mg IV Versed 1 mg IV Versed 1 mg IV Oxygen: 2 L/min via nasal cannula Baby Aspirin (81mg) 1 Tabs PO @ 03/03/2021 08:54:53 Heparin diluted in 23cc Heparinized saline. Patient given 10cc IA of this solution. 03/03/2021 09:04:58 Verapamil 2.5mg, Ntg 100mcgs, 2000 units of Heparin diluted in 23cc Heparinized saline. Patient given 10cc IA of this solution. 03/03/2021 09:04:58 IV Bolus: .9 NaCl 500 ml total 03/03/2021 12:03:43 IV Fluids: .9 NaCl IV started @ 75 ml/hr 03/03/2021 10:00:23 SUMMARY OF HEMODYNAMIC DATA Time AIR REST ECG 08:47:00 AO 130/67 (93) SA 09:07:06 LV 131/9, 25 09:14:43 LV 119/10, 26 09:14:49 LV 134/11, 27 09:15:56 LVp 125/16, 28 09:16:06 AOp 105/60 (79) 09:16:11 AO 132/68 (95) 09:29:20 RM AIR REST 09:36:54 Signed By Sacha Ruiz MD On 03/04/2021 8:47:41 AM Signed By Sacha Ruiz MD On 03/03/2021 9:47:57 AM Cardiology Operations: None Procedures: Cardiac catheterization Summary of Care Provided: Mrs. Sanders is a 60-year-old white female with a past medical history of hypertension, GERD, and tobacco abuse who presented to the emergency department at [facility] on 03/02/2021 secondary to chest pain. She had been seen twice at [facility] over the weekend and was recommended to be admitted however she declined admissions at those times. She reported over the weekend she had intermittent chest burning/pressure that was associated with nausea, diaphoresis, and shortness of breath. Her symptoms improved somewhat by the day of admission but she had recurrence of her symptoms and spoke to her primary care physician who referred her to the emergency department for further evaluation. She was admitted to the PCU and was evaluated by cardiology. Given her story was so significantly impressive for suspected cardiac disease she was taken to the Information Security Officer. She was found to have high-grade right coronary artery lesion but in a small dominant vessel. Per recommendations from cardiology would be medical management at this time and further evaluation for PCI after the patient is more stable as an outpatient. They were concerned because the vessel is so small in caliber. A CT of the chest was performed to exclude any dissection or pericardial extension. CT was negative for any such pathology. Prior to admission the patient is already on a beta-sofi and an BATSHEVA inhibitor. She is also taking an aspirin daily. We recommend the initiation of a statin upon discharge but the patient was resistant stating that her uncle had from Lipitor. I reviewed her cholesterol with her. Her total cholesterol is 232, LDL was 160, and HDL are 44 discussed nonpharmacological options for treatment including exercise and diet. We reviewed the risk and benefits of utilization of a statin and she states that after she does some reading she may reconsider statin use but will not use Lipitor. She was discharged in stable condition on 03/04/2021 with instructions to follow-up with Dr. Ruiz in 2 to 4 weeks. Recommend outpatient PFTs if these have not already been done. Discharge diagnoses Coronary artery disease Hyperlipidemia Hypertension GERD Tobacco abuse with suspected COPD Patient Problems: Active and Suspected Problems Chest pain (Acute) - Physical Exam Vitals/I&O's: Vital Signs Temp Pulse Resp BP Pulse Ox 96.9 F L 61 18 129/67 H 96 03/04/21 08:03 03/04/21 08:03 03/04/21 08:03 03/04/21 08:03 03/04/21 08:03 Oxygen Delivery Method Room Air Weight: 76.521 kg Body Mass Index (BMI) 31.8 Intake and Output for Last 24 Hours 03/02/21 03/03/21 03/04/21 23:59 23:59 23:59 Intake Total 480 / 480 1840 / 1840 240 / 240 Balance 480 / 480 1840 / 1840 240 / 240 General: Alert, Oriented x3, Cooperative, No apparent distress, Well developed, Well nourished, - - Upper middle-aged white female who appears older than stated age, walking around room, appears a bit anxious HEENT: Atraumatic, Normocephalic Oral: Moist Mucosa Neck: Supple, Trachea Midline Lungs: No wheeze, No rales, Diminished - Diffusely Cardiovascular: Regular rate, Regular Rhythm, Normal S1, Normal S2, No murmurs, No Ectopic Activity, No rub noted, No Gallop Abdomen: Bowel Sounds Present, Soft, Non Tender, Non-Distended Extremities: No clubbing, No cyanosis, No edema, Capillary Refill Less than 3 Seconds, Peripheral Pulses Normal, - - Right radial access site for left heart cath dressing clean and dry Skin: No rashes, No breakdown Neurological: Cranial nerves II-XII grossly intact, Neuro grossly intact Psych/Mental Status: Normal Affect, Anxious Current Medications Acetaminophen (Acetaminophen 325 Mg Tablet) 650 mg PO Q6H PRN PRN PRN Reason: Pain Score 1-10/Temp > 100.7 F Last Admin: 03/02/21 17:10 Dose: 650 mg Documented by: Aspirin (Aspirin E.C. 81 Mg Tablet) 81 mg PO DAILY@2000 [facility] Last Admin: 03/03/21 20:15 Dose: 81 mg Documented by: Atenolol (Atenolol 50 Mg Tablet) 50 mg PO BID [facility] Last Admin: 03/04/21 08:04 Dose: 50 mg Documented by: Atorvastatin Calcium (Atorvastatin Calcium 40 Mg Tablet) 40 mg PO QHS [facility] Last Admin: 03/03/21 20:15 Dose: Not Given Documented by: Enoxaparin Sodium (Enoxaparin 40 Mg/0.4 Ml Syringe) 40 mg SC DAILY [facility] Last Admin: 03/04/21 08:15 Dose: Not Given Documented by: Famotidine (Famotidine 20 Mg Tablet) 40 mg PO DAILY [facility] Last Admin: 03/04/21 08:16 Dose: Not Given Documented by: Hydralazine HCl (Hydralazine 20 Mg/Ml Vial) 10 mg IV Q6H PRN PRN PRN Reason: for SBP>160 Sodium Chloride () 250 mls @ 15 mls/hr IV .[id number] PRN PRN Reason: Saline Flush Sodium Chloride () 250 mls @ 15 mls/hr IV .[id number] PRN PRN Reason: Additional IVPB Infusion Sodium Chloride () 1,000 mls @ 15 mls/hr IV .Q48H [facility] Last Admin: 03/03/21 12:21 Dose: Not Given Documented by: Iopamidol (Contrast Allergy Safety Check) 0 ml IV X1 [facility] Last Admin: 03/04/21 08:15 Dose: Not Given Documented by: Lisinopril (Lisinopril 10 Mg Tablet) 10 mg PO DAILY@2100 [facility] Last Admin: 03/03/21 20:15 Dose: 10 mg Documented by: Nitroglycerin (Nitroglycerin (Inpatient Use) 0.4 Mg Tab.Subl) 0.4 mg SL Q5M PRN PRN Reason: CARDIAC/CHEST PAIN Senna/Docusate Sodium (Senna/Docusate Sodium 1 Tablet) 2 tablet PO BID PRN PRN PRN Reason: Constipation Sodium Chloride (0.9% Saline Lock 10 Ml Syringe) 10 - 40 ml IV UD PRN PRN Reason: SALINE FLUSH Zolpidem Tartrate (Zolpidem Tartrate 5 Mg Tablet) 5 mg PO QHS PRN PRN PRN Reason: INSOMNIA Last Admin: 03/02/21 21:32 Dose: 5 mg Documented by: Discharge Activity: Return to Normal Activity, - - Do not lift greater than 10 pounds with right arm until 03/05/2021 Return to work on 03/07/2021 Home Medications: Medications to take at Discharge Aspirin E.C. [Ecotrin] 81 mg PO DAILY@199903/02/21 Atenolol 50 mg PO BID 03/02/21 Cannabidiol (Cbd) [Epidiolex] 100 mg PO BID 03/02/21 Cider Vinegar [Apple Cider Vinegar] 1,200 mg PO DAILY 03/02/21 Dandelion 3 tablet PO DAILY 03/02/21 Famotidine 40 mg PO DAILY 03/02/21 Garlic 3 tablet PO DAILY 03/02/21 Lisinopril [Zestril] 10 mg PO DAILY@209903/02/21 Multivitamin with Minerals [Multiple Vitamin] 1 tablet PO DAILY 03/02/21 Nitroglycerin (INPATIENT USE) [Nitrostat] 0.4 mg SL Q5M PRN 03/02/21 [place]-3 Fatty Acids/Fish Oil [Fish Oil 1,000 mg Capsule] 3,000 mg PO DAILY 03/02/21 Zinc Sulfate (50mg elemental) [Zinc Sulfate] 2 tablet PO DAILY 03/02/21 Primary Care Physician: Eugenio Crandall MD [Primary Care Provider] - Please follow up with your Primary Care Physician in: 1 to 2 weeks Please Follow Up With: Sacha Ruiz MD When: 2-4 weeks-call for appt Medical Necessity - Tobacco Use Smoking Status: Current every day smoker Tobacco Use: Cigarettes Meaningful Use Info Meaningful Use Diagnoses (Choose all that apply): None applicable Inpatient E&M: 30393 Disch Hosp Multi Select Codes - Visit Charges Visit Charges: 62853 Disch Hosp
== END 2021-03-04 11:40 | disposition home or self-care (01) ==
LOC: ED 14:19 → PCU 15:39
PROVIDERS: Emergency Medicine; Admitting Provider Hospitalist; Emergency Provider Emergency Medicine; PCP Family Medicine; Visit Provider Internal Medicine
DX: I25.110 Atherosclerotic heart disease of native coronary artery with unstable angina pectoris (principal); I10 Essential (primary) hypertension; K21.9 Gastro-esophageal reflux disease without esophagitis; F17.210 Nicotine dependence, cigarettes, uncomplicated; Z79.899 Other long term (current) drug therapy; Z79.82 Long term (current) use of aspirin; E78.5 Hyperlipidemia, unspecified
CPT/HCPCS: 36415; 71045; 71270; 80048; 80061; 84484; 85025; 85610; 93005; 93308; 93458; 96360; 96361; 99152; 99153; 99218; 99285; 99406; J7030; J7040; Q9967; A4216; C1769; C1894; G0378

== ENCOUNTER → 2023-01-31 | Outpatient (CLI) | payer OTHER, SELFPAY | END | disposition home or self-care (01) | LOC: LABSPEC 16:10 | PROVIDERS: PCP Family Medicine; Visit Provider Otolaryngology | DX: J02.9 Acute pharyngitis, unspecified (principal) | CPT/HCPCS: 87070 ==